=== PATIENT | female | born 1980 | race Caucasian/White ===

== ENCOUNTER 2017-08-10 18:18 | Inpatient (IN) ==
[2017-08-10 19:04] LABS: Bilirubin,Urine Negative (Negative); Blood,Urine Small (Negative); Clarity,Urine Turbid (Clear); Color,Urine Yellow (Yellow); Glucose,Urine (UA) Normal (Normal); Ketones,Urine Negative (Negative); Leukocyte Esterase,Urine Large (Negative); Nitrite,Urine Positive (Negative); Protein,Urine 30 mg/dL (Neg-Trace); Specific Gravity,Urine 1.017 (1.010-1.025); Urobilinogen,Urine Normal (Normal)
[2017-08-10 19:05] LABS: Bacteria,Urine Many per hpf (None-Few); Hyaline Casts,Urine None Seen per lpf (None-Few); Squamous Epithelial Cell,Urine Many per lpf (None-Few); WBC,Urine TNTC per hpf (0-3)
[2017-08-10 19:09] LABS: Amphetamine Screen,Urine Negative ng/mL (Cutoff=1000); Barbiturate Screen,Urine Negative ng/mL (Cutoff=200); Benzodiazepines Screen,Urine Negative ng/mL (Cutoff=200); Cannabinoid Screen,Urine Negative ng/mL (Cutoff = 50); Cocaine Screen,Urine Negative ng/mL (Cutoff= 300); Opiate Screen,Urine Negative ng/mL (Cutoff=300); Phencyclidine Screen,Urine Negative ng/mL (Cutoff=25)
[2017-08-10 19:18] LABS: Basophils # 0.1 K/mcL (0.0-0.2); Basophils % 0.6 %; Eosinophils # 0.3 K/mcL (0.0-0.6); Eosinophils % 3.2 %; Hematocrit 45.9 % (35.3-44.9); Hemoglobin 15.4 g/dL (11.5-15.4); Immature Granulocytes % 0.4 % (0-4); Lymphocytes % 25.8 %; Mean Corpuscular HGB Conc 33.6 g/dL (31.6-35.5); Mean Corpuscular Hemoglobin 31.2 pg (28.0-33.3); Mean Corpuscular Volume 92.9 fL (83.0-100.0); Mean Platelet Volume 9.6 fL (9.4-12.4); Monocytes # 0.7 K/mcL (0.0-1.3); Monocytes % 8.4 %; Neutrophils # 4.8 K/mcL (1.6-8.9); Platelet Count 236 K/mcL (140-400); Red Blood Count 4.94 M/mcL (3.82-4.97); Red Cell Distribution Width 12.5 % (11.5-14.5); Segmented Neutrophils % 61.6 %
[2017-08-10] MEDS ORDERED: levoFLOXacin 750 MG TABLET PO STA (19:36)
--- NOTE | 2017-08-10 19:36 | Emergency Department Note ---
Disposition Clinical Impression: Suicidal ideation UTI (urinary tract infection) Qualifiers: Urinary tract infection type: site unspecified Hematuria presence: without hematuria Qualified Code(s): N39.0 - Urinary tract infection, site not specified Alcohol withdrawal Qualifiers: Complication of substance-induced condition: uncomplicated Qualified Code(s): F10.230 - Alcohol dependence with withdrawal, uncomplicated Disposition: Admitted As Inpatient Condition: Fair Psych HPI - General Chief Complaint: ED Psychiatric Symptoms Stated Complaint: SI,Alcohol Time Seen by Provider: 08/10/17 18:46 Source: patient Mode of arrival: ambulatory Limitations: no limitations Nursing Notes Reviewed: Yes Vital Signs Reviewed: Yes - History of Present Illness HPI Narrative: Patient presents for evaluation of concern for depression and suicidal ideation. Patient states that she has been dealing with this issues for a long time. She feels better when she is on Prozac Prozac was written by a nurse practitioner and she does not always see them. The patient states that she has been on the Prozac last several days without significant change. Patient states that she does have a strong history of chronic alcohol use and has been decreasing. Patient states she is not had anything to drink for the last 3 days. The patient has had burning with urination as well as frequency. She states she has been having fevers and chills with nausea but no vomiting. She states that she believes the fevers chills and nausea related to her detox. Patient will undergo further lab evaluation as well as check urinalysis. - Related Data Home Medications Medication Instructions Recorded Confirmed FLUoxetine HCl [Fluoxetine HCl] 40 mg PO DAILY 08/10/17 08/10/17 hydrOXYzine HCl [Hydroxyzine HCl] 25 mg PO TID 08/10/17 08/10/17 Allergies Allergy/AdvReac Type Severity Reaction Status Date / Time No Known Allergies Allergy Verified 08/10/17 18:23 Review of Systems: CONSTITUTIONAL: Fevers and chills No weight loss, weakness or fatigue. HEENT: Eyes: No visual changes. Ears, Nose, Throat: No hearing loss, difficulty talking or unable to swallow. SKIN: No rash or itching. CARDIOVASCULAR: No chest pain, chest pressure or chest discomfort. No palpitations or edema. RESPIRATORY: No shortness of breath, cough or sputum. GASTROINTESTINAL: Nausea No anorexia, vomiting or diarrhea. No abdominal pain or blood. GENITOURINARY: Burning and frequency with urination NEUROLOGICAL: No headache, dizziness, syncope, paralysis, ataxia, numbness or tingling in the extremities. No change in bowel or bladder control. MUSCULOSKELETAL: No muscle pain, back pain, joint pain or stiffness. Psych: Suicidal ideation, depression Past Medical History - Past Medical History Medical history: Reports: no medical history Psychiatric history: Reports: anxiety, depression, panic disorder, prior suicide attempt, previous psychiatric hospitalization GI ASST history: Reports: bilateral tubal ligation - Social History Smoking Status: Current every day smoker Smokeless Tobacco Status: No Alcohol use: Reports: heavy Drug use: Reports: none Physical Exam General: Well appearing, nontoxic, no acute distress Head: Normocephalic Atraumatic Eyes: PERRL, EOMI ENT: Airway patent, no stridor Neck: supple, no meningismus Chest: Lungs clear to auscultation bilateral Cardiac: Regular rate and rhythm, no murmurs, rubs or gallops Abdomen: soft, nontender, nondistended; no guarding, rebound, or tenderness to percussion; mild right CVA tenderness Musculoskeletal: Calves symmetric, nontender, no palpable cord Skin: No rash, normal skin tone Neuro: Alert and Oriented to person, place, and time; No focal deficit, CN 2-12 symmetric and intact - General Limitations: no limitations General appearance: alert, in no apparent distress Course - Reevaluation(s) Reevaluation #1: She has been found to have significant urinary tract infection. Concern for possible Pyelo bcs she does have some mild CVA tenderness in association with the fever, chills, nausea but these may be related to detox rather than Pyelo. - Consultations Consultation #1: Discussed with 1A. Patient accepted for admission Vital Signs Temperature 97.9 F 08/10/17 18:21 Pulse Rate 82 08/10/17 18:21 Respiratory Rate 16 08/10/17 18:21 Blood Pressure 136/93 08/10/17 18:21 O2 Sat by Pulse Oximetry 98 08/10/17 18:21 Temperature 98.0 F 08/10/17 21:54 Pulse Rate 61 08/10/17 21:54 Respiratory Rate 18 08/10/17 21:54 Blood Pressure 117/77 08/10/17 21:54 O2 Sat by Pulse Oximetry 98 08/10/17 18:21 Oxygen Delivery Oxygen Delivery Room Air Psych - Lab Data Result diagrams: 08/10/17 19:08 08/10/17 19:08 Lab Results 08/10/17 08/10/17 08/10/17 Range/Units 18:52 18:52 19:08 WBC 7.7 (4.3-11.1) K/mcL RBC 4.94 (3.82-4.97) M/mcL Hgb 15.4 (11.5-15.4) g/dL Hct 45.9 H (35.3-44.9) % MCV 92.9 (83.0-100.0) fL MCH 31.2 (28.0-33.3) pg MCHC 33.6 (31.6-35.5) g/dL RDW 12.5 (11.5-14.5) % Plt Count 236 (140-400) K/mcL MPV 9.6 (9.4-12.4) fL Immature Gran % 0.4 (0-4) % Seg Neutrophils % 61.6 % Lymphocytes % 25.8 % Monocytes % 8.4 % Eosinophils % 3.2 % Basophils % 0.6 % Neutrophils # 4.8 (1.6-8.9) K/mcL Lymphocytes # 2.0 (0.6-4.6) K/mcL Monocytes # 0.7 (0.0-1.3) K/mcL Eosinophils # 0.3 (0.0-0.6) K/mcL Basophils # 0.1 (0.0-0.2) K/mcL Sodium (136-145) mEq/L Potassium (3.5-5.1) mEq/L Chloride (98-107) mEq/L Carbon Dioxide (23-29) mEq/L BUN (6-20) mg/dL Creatinine (0.60-1.20) mg/dL Est GFR ( Amer) (> 60) Est GFR (Non-Af Amer) (> 60) BUN/Creatinine Ratio (6-26) Glucose (70-105) mg/dL Calculated Osmolality (280-300) Calcium (8.6-10.3) mg/dL Urine Color Yellow (Yellow) Urine Clarity Turbid A (Clear) Urine pH 6.0 (5.0-8.0) pH Units Ur Specific [place] 1.017 (1.010-1.025) Urine Protein 30 H (Neg-Trace) mg/dL Urine Glucose (UA) Normal (Normal) mg/dL Urine Ketones Negative (Negative) mg/dL Urine Blood Small H (Negative) Urine Nitrite Positive A (Negative) Urine Bilirubin Negative (Negative) Urine Urobilinogen Normal (Normal) mg/dL Ur Leukocyte Esterase Large H (Negative) Urine Microscopic RBC 5-15 H (0-3) per hpf Urine Microscopic WBC TNTC H (0-3) per hpf Ur Squamous Epith Cells Many H (None-Few) per lpf Urine Bacteria Many H (None-Few) per hpf Hyaline Casts None Seen (None-Few) per lpf Ur Culture Indicated? NO. (NO) Salicylates (15.0-30.0) mg/dL Urine Opiates Screen Negative (Riodjg=234) ng/mL Acetaminophen (10-30) mcg/mL Ur Barbiturates Screen Negative (Cfpiga=874) ng/mL Ur Phencyclidine Scrn Negative (Cutoff=25) ng/mL Ur Amphetamines Screen Negative (Hvojte=9029) ng/mL U Benzodiazepines Scrn Negative (Vggkei=745) ng/mL Urine Cocaine Screen Negative (Cutoff= 300) ng/mL U Marijuana (THC) Screen Negative (Cutoff = 50) ng/mL Ethyl Alcohol (0-10) mg/dL 08/10/17 Range/Units 19:08 WBC (4.3-11.1) K/mcL RBC (3.82-4.97) M/mcL Hgb (11.5-15.4) g/dL Hct (35.3-44.9) % MCV (83.0-100.0) fL MCH (28.0-33.3) pg MCHC (31.6-35.5) g/dL RDW (11.5-14.5) % Plt Count (140-400) K/mcL MPV (9.4-12.4) fL Immature Gran % (0-4) % Seg Neutrophils % % Lymphocytes % % Monocytes % % Eosinophils % % Basophils % % Neutrophils # (1.6-8.9) K/mcL Lymphocytes # (0.6-4.6) K/mcL Monocytes # (0.0-1.3) K/mcL Eosinophils # (0.0-0.6) K/mcL Basophils # (0.0-0.2) K/mcL Sodium 137 (136-145) mEq/L Potassium 3.6 (3.5-5.1) mEq/L Chloride 110 H (98-107) mEq/L Carbon Dioxide 24 (23-29) mEq/L BUN 7 (6-20) mg/dL Creatinine 0.73 (0.60-1.20) mg/dL Est GFR ( Amer) > 60 (> 60) Est GFR (Non-Af Amer) > 60 (> 60) BUN/Creatinine Ratio 10 (6-26) Glucose 96 (70-105) mg/dL Calculated Osmolality 282 (280-300) Calcium 9.2 (8.6-10.3) mg/dL Urine Color (Yellow) Urine Clarity (Clear) Urine pH (5.0-8.0) pH Units Ur Specific [place] (1.010-1.025) Urine Protein (Neg-Trace) mg/dL Urine Glucose (UA) (Normal) mg/dL Urine Ketones (Negative) mg/dL Urine Blood (Negative) Urine Nitrite (Negative) Urine Bilirubin (Negative) Urine Urobilinogen (Normal) mg/dL Ur Leukocyte Esterase (Negative) Urine Microscopic RBC (0-3) per hpf Urine Microscopic WBC (0-3) per hpf Ur Squamous Epith Cells (None-Few) per lpf Urine Bacteria (None-Few) per hpf Hyaline Casts (None-Few) per lpf Ur Culture Indicated? (NO) Salicylates < 5.0 L (15.0-30.0) mg/dL Urine Opiates Screen (Povvaz=174) ng/mL Acetaminophen < 1.0 L (10-30) mcg/mL Ur Barbiturates Screen (Zmmpro=524) ng/mL Ur Phencyclidine Scrn (Cutoff=25) ng/mL Ur Amphetamines Screen (Msrslk=1479) ng/mL U Benzodiazepines Scrn (Utagnm=119) ng/mL Urine Cocaine Screen (Cutoff= 300) ng/mL U Marijuana (THC) Screen (Cutoff = 50) ng/mL Ethyl Alcohol < 10 (0-10) mg/dL Psychiatric Medical Clearance - Medical Clearance Checklist Medical History: No Social History Section defined Current Vitals: Last Vital Signs Temp 98.0 F 08/10/17 21:54 Pulse 61 08/10/17 21:54 Resp 18 08/10/17 21:54 BP 117/77 08/10/17 21:54 Pulse Ox 98 08/10/17 18:21 Psychiatric Lab Panel: Drug Levels and Toxicity 08/10/17 08/10/17 18:52 19:08 Urine Opiates Screen Negative Acetaminophen < 1.0 L Ur Barbiturates Screen Negative Ur Phencyclidine Scrn Negative Ur Amphetamines Screen Negative U Benzodiazepines Scrn Negative Urine Cocaine Screen Negative U Marijuana (THC) Screen Negative Ethyl Alcohol < 10 Abnormal Labs: Abnormal lab results Hct 45.9 % (35.3-44.9) H 08/10/17 19:08 Chloride 110 mEq/L (98-107) H 08/10/17 19:08 Urine Clarity Turbid (Clear) A 08/10/17 18:52 Urine Protein 30 mg/dL (Neg-Trace) H 08/10/17 18:52 Urine Blood Small (Negative) H 08/10/17 18:52 Urine Nitrite Positive (Negative) A 08/10/17 18:52 Ur Leukocyte Esterase Large (Negative) H 08/10/17 18:52 Urine Microscopic RBC 5-15 per hpf (0-3) H 08/10/17 18:52 Urine Microscopic WBC TNTC per hpf (0-3) H 08/10/17 18:52 Ur Squamous Epith Cells Many per lpf (None-Few) H 08/10/17 18:52 Urine Bacteria Many per hpf (None-Few) H 08/10/17 18:52 Salicylates < 5.0 mg/dL (15.0-30.0) L 08/10/17 19:08 Acetaminophen < 1.0 mcg/mL (10-30) L 08/10/17 19:08 Statement of Medical Clearance: I have evaluated the patient, reviewed diagnostic information, and certify that the patient's medical condition is sufficiently stable that transfer to the psychiatric unit does not pose a significant risk of deterioration.
[2017-08-10 19:46] LABS: Acetaminophen < 1.0 mcg/mL (10-30); Ethanol < 10 mg/dL (0-10); Salicylate < 5.0 mg/dL (15.0-30.0)
[2017-08-10 19:47] LABS: BUN/Creatinine Ratio 10 (6-26); Blood Urea Nitrogen 7 mg/dL (6-20); Calcium 9.2 mg/dL (8.6-10.3); Carbon Dioxide 24 mEq/L (23-29); Chloride 110 mEq/L (98-107); Glucose 96 mg/dL (70-105); Osmolality,Calculated 282 (280-300); Potassium 3.6 mEq/L (3.5-5.1); Sodium 137 mEq/L (136-145); eGFR For African Americans > 60 (> 60); eGFR For Non-African Americans > 60 (> 60)
--- NOTE | 2017-08-10 20:14 | Emergency Department Note ---
START Narrative - START START: I examined this patient and my medical decision-making was reviewed with the Resident Physician. I agree with the documented findings, disposition and treatment plan as described except to the extent set forth below. 37 -year-old female here for suicidal ideation and depression. Patient was found to have a urinary tract infection. We will give some IV antibiotics for this. Remaining lab work is okay. Patient also has problems with alcohol. Her last drink was 3 days ago. She does feels slightly jittery. No homicidal thoughts. Awaiting psychiatric evaluation for possible placement. We will treat her urinary tract infection with Levaquin.
[2017-08-10] MEDS ORDERED: *HR* LORazepam 2 MG/ML VIAL IM PRN (21:54)
[2017-08-10] MEDS ORDERED: Haloperidol Lactate 5 MG/ML VIAL IM PRN (21:54)
[2017-08-10] MEDS ORDERED: Ibuprofen 400 MG TABLET PO PRN (21:54)
[2017-08-10] MEDS ORDERED: hydrOXYzine pamoate 25 MG CAPSULE PO PRN (21:54)
[2017-08-10] MEDS ORDERED: MOM Conc 10 ML UD.LIQ PO PRN (21:54)
[2017-08-10] MEDS ORDERED: Mag Hydrox/Al Hydrox/Simeth 30 ML UDC PO PRN (21:54)
[2017-08-10] MEDS ORDERED: *HR* LORazepam 1 MG TABLET PO PRN (21:54)
[2017-08-10] MEDS ORDERED: levoFLOXacin 500 MG TABLET PO ONE (22:00)
[2017-08-10] MEDS: diazePAM 5 MG TABLET PO SCH (22:47)
[2017-08-10] MEDS ORDERED: Ondansetron ODT 4 MG TAB.RAPDIS SL PRN (22:55)
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
[2017-08-11] MEDS: FLUoxetine 20 MG CAPSULE PO SCH (09:38)
[2017-08-11] MEDS: diazePAM 5 MG TABLET PO SCH ×2 (09:39→20:08)
[2017-08-11] MEDS: Nicotine 21 MG PATCH.TD24 TD SCH (09:39)
[2017-08-11] MEDS: levoFLOXacin 500 MG TABLET PO SCH (09:39)
[2017-08-12] MEDS: diazePAM 5 MG TABLET PO SCH ×2 (08:57→21:43)
[2017-08-12] MEDS: levoFLOXacin 500 MG TABLET PO SCH (08:57)
[2017-08-12] MEDS: FLUoxetine 20 MG CAPSULE PO SCH (08:57)
[2017-08-12] MEDS: Nicotine 21 MG PATCH.TD24 TD SCH (08:59)
--- NOTE | 2017-08-13 00:14 | Psychiatry Progress Note ---
Date of Encounter: 08/13/17 Time of Encounter: 10:00 Subjective Interval history: The patient was seen and reviewed some history. Patient reports that she has had panic attacks and that the Valium 5 mg twice a day as most helpful for this. She has been on Prozac 40 mg feels this is helpful for mood. The patient notes that she has not been on anything else for panic attacks. She indicates that she lives with her fiance and her [id number] son. She has several other children. Her plan is to go back to [facility]. She plans to attend she plans to remain on her antidepressant she plans to go on meeting in [place]. The patient reports no current suicidal or homicidal ideation. She is not craving the diazepam. Vitals signs up and checked every 4 hours while awake. Review of Systems Constitutional: Reports: night sweats. Denies: fever, chills, weakness, weight change Cardiovascular: Denies: chest pain, palpitations, dyspnea on exertion Psychiatric: Reports: depression, anxiety, abnormal sleep pattern, suicidal ideation, anhedonia, difficulty concentrating, hopelessness, irritability, mood swings, panic attacks. Denies: auditory hallucinations, visual hallucinations Objective: Exam Patient orientation: Yes Person, Yes Time, Yes Place, Yes Circumstance Level of alertness: Alert Patient appearance: Appropriate Behavior: calm, cooperative Psychomotor activity: Normal Eye contact: Maintains Eye Contact Mood description: Euthymic/stable Affect description: congruent with mood, anxious Speech pattern: Normal rate Speech volume: Normal Thought process: Intact Thought content: Yes Intact Perceptual disturbances: Yes Reacting to internal stimuli Judgment: Limited Insight: Minimal Results - Vital Signs Vital Signs: Temp Pulse Resp BP Pulse Ox 98.4 F 79 16 116/79 96 08/12/17 20:56 08/12/17 20:56 08/12/17 20:56 08/12/17 20:56 08/11/17 05:00 - Drug Levels and Toxicology Drug Levels and Toxicology: The toxicology was negative for drugs of abuse Assessment and Plan (1) Alcohol withdrawal Current visit: Yes Status: Acute Plan: Encourage participation in unit milieu Risks, benefits, side effects, alternatives discussed w/pt: Yes Patient agreeable to treatment: Yes Qualifiers: Complication of substance-induced condition: with unspecified complication Qualified Code(s): F10.239 - Alcohol dependence with withdrawal, unspecified (2) Major depressive disorder Current visit: Yes Status: Acute Additional Plan: The patient will remain on Prozac 40 mg per day Risks, benefits, side effects, alternatives discussed w/pt: Yes Patient agreeable to treatment: Yes Qualifiers: Major depression recurrence: recurrent Active/Remission status: currently active Major depression episode severity: severe Psychotic features: without psychotic features Qualified Code(s): F33.2 - Major depressive disorder, recurrent severe without psychotic features (3) Anxiety Current visit: Yes Status: Acute Plan: Continue hospitalization, Family/Supportive other meeting Additional Plan: This patient is doing well on diazepam. However it has a risk of addiction. This was discussed. Our other options including adding BuSpar baclofen or topiramate. Vistaril was not helpful Risks, benefits, side effects, alternatives discussed w/pt: Yes Patient agreeable to treatment: Yes (4) Suicidal ideation Current visit: Yes Status: Acute Plan: Continue hospitalization, Suicide Precautions per unit protocol Risks, benefits, side effects, alternatives discussed w/pt: Yes Patient agreeable to treatment: Yes Consult Discharge Plan - Plan Referrals: [facility] [Outside] - 08/23/17 11:00 am (Above appointment is with Manpreet Martinez You will also see Skyla Branch NP on 09/15/17 at 9:30am)
[2017-08-13] MEDS: levoFLOXacin 500 MG TABLET PO SCH (08:49)
[2017-08-13] MEDS: FLUoxetine 20 MG CAPSULE PO SCH (08:50)
[2017-08-13] MEDS: Nicotine 21 MG PATCH.TD24 TD SCH (08:50)
[2017-08-13] MEDS: diazePAM 5 MG TABLET PO SCH ×2 (08:51→21:09)
--- NOTE | 2017-08-13 15:14 | Psychiatry Progress Note ---
Date of Encounter: 08/13/17 Time of Encounter: 13:45 Subjective Interval history: The patient was seen visiting with family members. She has been doing well with diazepam 5 mg twice a day. She recognizes that this potentially addictive medicine but this is helped her panic attacks and in fact she is anxious about possibly going off nonetheless she was able to discuss an alternative baclofen and another alternative topiramate in an effort to control anxiety without being on diazepam or the patient wishes to make maintain on Prozac 40 mg per day she is able to read books on recovery and recites for [employer] se[employer] prayer. She is working on a follow-up appointment [facility] but would like to get back to her family. The patient has had tubal ligation so that contraception is not major concern. Review of Systems Constitutional: Denies: fever, chills, weakness, weight change Eyes: Denies: eye pain, vision change Ears, Nose, Throat: Denies: ear pain, throat pain, dental pain, hearing loss, congestion Cardiovascular: Denies: chest pain, palpitations, dyspnea on exertion Respiratory: Denies: cough, dyspnea, wheezes Gastrointestinal: Denies: abdominal pain, nausea, vomiting, diarrhea, constipation Musculoskeletal: Denies: joint swelling, joint pain Neurological: Denies: headache, weakness, numbness, memory loss Psychiatric: Reports: anxiety. Denies: auditory hallucinations, visual hallucinations Objective: Exam Patient orientation: Yes Person, Yes Time, Yes Place Level of alertness: Alert Patient appearance: Appropriate, Well Groomed Behavior: calm, cooperative, anxious Psychomotor activity: Normal Eye contact: Maintains Eye Contact Mood description: Euthymic/stable Affect description: congruent with mood, full range Speech pattern: Normal rate, Normal rhythm, Normal tone Speech volume: Normal Thought process: Linear, Goal Oriented Thought content: No Suicidal ideation, No Homicidal ideation, No Overt delusions Perceptual disturbances: No Auditory hallucinations, No Visual hallucinations Judgment: Fair Insight: Partial Results - Vital Signs Vital Signs: Temp Pulse Resp BP Pulse Ox 98.2 F 90 16 117/76 96 08/13/17 09:19 08/13/17 09:19 08/13/17 09:19 08/13/17 09:19 08/11/17 05:00 - Impressions The patient has been free of 4 withdrawal symptoms does not evidence significant elevations in vital signs therefore there will be moved to a routine. Assessment and Plan (1) Alcohol withdrawal Current visit: Yes Status: Resolved Plan: Close observation Risks, benefits, side effects, alternatives discussed w/pt: Yes Patient agreeable to treatment: Yes Qualifiers: Complication of substance-induced condition: with unspecified complication Qualified Code(s): F10.239 - Alcohol dependence with withdrawal, unspecified (2) Major depressive disorder Current visit: Yes Status: Acute Plan: Continue hospitalization, Close observation, Family/Supportive other meeting Risks, benefits, side effects, alternatives discussed w/pt: Yes Patient agreeable to treatment: Yes Qualifiers: Major depression recurrence: recurrent Active/Remission status: currently active Major depression episode severity: severe Psychotic features: without psychotic features Qualified Code(s): F33.2 - Major depressive disorder, recurrent severe without psychotic features (3) Anxiety Current visit: Yes Status: Acute Plan: Continue hospitalization Additional Plan: Trial of baclofen 10 mg every afternoon Risks, benefits, side effects, alternatives discussed w/pt: Yes Patient agreeable to treatment: Yes (4) Suicidal ideation Current visit: Yes Status: Acute Plan: Continue hospitalization, Close observation Risks, benefits, side effects, alternatives discussed w/pt: Yes Patient agreeable to treatment: Yes Consult Discharge Plan - Plan Referrals: [facility] [Outside] - 08/23/17 11:00 am (Above appointment is with Manpreet Martinez You will also see Skyla Branch NP on 09/15/17 at 9:30am)
[2017-08-13] MEDS ORDERED: Baclofen 10 MG TABLET PO SCH (18:00)
[2017-08-13] MEDS: traZODone 50 MG TABLET PO PRN (21:15)
[2017-08-14] MEDS: Nicotine 21 MG PATCH.TD24 TD SCH (08:41)
[2017-08-14] MEDS: diazePAM 5 MG TABLET PO SCH ×2 (08:42→20:55)
[2017-08-14] MEDS: FLUoxetine 20 MG CAPSULE PO SCH (08:42)
[2017-08-14] MEDS: levoFLOXacin 500 MG TABLET PO SCH (08:42)
--- NOTE | 2017-08-14 15:36 | Psychiatry Progress Note ---
Date of Encounter: 08/14/17 Time of Encounter: 15:30 Subjective Interval history: Patient was sedated on Baclofen. She did not toelrate it. She is willing to try Topimate. She failed Vistaril, has not had Buspar. She would like to go home soon, so will try Toprimate for anxiety. Review of Systems Psychiatric: Reports: anxiety, panic attacks. Denies: auditory hallucinations, visual hallucinations Objective: Exam Patient orientation: Yes Person, Yes Time, Yes Place Level of alertness: Alert Patient appearance: Appropriate, Well Groomed Behavior: calm, cooperative Psychomotor activity: Normal Eye contact: Maintains Eye Contact Mood description: Euthymic/stable Affect description: congruent with mood, full range Speech pattern: Normal rate, Normal rhythm, Normal tone Speech volume: Normal Thought process: Linear, Goal Oriented Thought content: No Suicidal ideation, No Homicidal ideation, No Overt delusions Perceptual disturbances: No Auditory hallucinations, No Visual hallucinations Judgment: Fair Insight: Partial Results - Vital Signs Vital Signs: Temp Pulse Resp BP Pulse Ox 97.7 F 93 16 111/58 96 08/14/17 08:43 08/14/17 08:43 08/14/17 08:43 08/14/17 08:43 08/11/17 05:00 Assessment and Plan (1) Alcohol withdrawal Current visit: Yes Status: Resolved Plan: Close observation Risks, benefits, side effects, alternatives discussed w/pt: Yes Patient agreeable to treatment: Yes Qualifiers: Complication of substance-induced condition: with unspecified complication Qualified Code(s): F10.239 - Alcohol dependence with withdrawal, unspecified (2) Major depressive disorder Current visit: Yes Status: Acute Plan: Continue hospitalization, Group Therapy, Secure weapons Risks, benefits , side effects, alternatives discussed w/pt: Yes Patient agreeable to treatment: Yes Qualifiers: Major depression recurrence: recurrent Active/Remission status: currently active Major depression episode severity: severe Psychotic features: without psychotic features Qualified Code(s): F33.2 - Major depressive disorder, recurrent severe without psychotic features (3) Anxiety Current visit: Yes Status: Acute Additional Plan: d/c baclofen trial of topirmate, side effects Risks, benefits, side effects, alternatives discussed w/pt: Yes Patient agreeable to treatment: Yes (4) Suicidal ideation Current visit: Yes Status: Acute Risks, benefits, side effects, alternatives discussed w/pt: Yes Patient agreeable to treatment: Yes Consult Discharge Plan - Plan Referrals: [facility] [Outside] - 08/23/17 11:00 am (Above appointment is with Manpreet Martinez You will also see Skyla Branch NP on 09/15/17 at 9:30am)
[2017-08-14] MEDS ORDERED: Topiramate 25 MG TABLET PO SCH (18:00)
[2017-08-14] MEDS: traZODone 50 MG TABLET PO PRN (20:55)
[2017-08-15 08:51] VITALS: BP 94/67
[2017-08-15] MEDS: levoFLOXacin 500 MG TABLET PO SCH (09:02)
[2017-08-15] MEDS: Nicotine 21 MG PATCH.TD24 TD SCH (09:03)
[2017-08-15] MEDS: FLUoxetine 20 MG CAPSULE PO SCH (09:03)
[2017-08-15] MEDS: diazePAM 5 MG TABLET PO SCH (09:06)
--- NOTE | 2017-08-15 11:05 | Discharge Summary ---
Date of Encounter: 08/15/17 Time of Encounter: 10:35 Diagnosis - Discharge Diagnosis (1) Major depressive disorder Status: Acute Qualifiers: Major depression recurrence: recurrent Active/Remission status: currently active Major depression episode severity: severe Psychotic features: without psychotic features Qualified Code(s): F33.2 - Major depressive disorder, recurrent severe without psychotic features (2) Alcohol withdrawal Status: Resolved Qualifiers: Complication of substance-induced condition: with unspecified complication Qualified Code(s): F10.239 - Alcohol dependence with withdrawal, unspecified (3) Anxiety Status: Acute Medications - Discharge Medications Prescriptions: FLUoxetine HCl [Prozac] 40 mg PO DAILY 30 Days #60 capsule Topiramate [Topamax] 25 mg PO QPM 30 Days #30 tablet traZODone [TraZODone] 50 mg PO HS PRN 30 Days #30 tablet PRN Reason: Insomnia FLUoxetine HCl [Fluoxetine HCl] 40 mg PO DAILY 08/10/17 [History] hydrOXYzine HCl [Hydroxyzine HCl] 25 mg PO TID 08/10/17 [History] FLUoxetine HCl [Prozac] 40 mg PO DAILY 30 Days #60 capsule 08/15/17 [Rx] Topiramate [Topamax] 25 mg PO QPM 30 Days #30 tablet 08/15/17 [Rx] levoFLOXacin [Levaquin] 500 mg PO DAILY 7 Days #7 tablet 08/15/17 [Rx] traZODone [TraZODone] 50 mg PO HS PRN 30 Days #30 tablet 08/15/17 [Rx] 3 Allergy/AdvReac Type Severity Reaction Status Date / Time No Known Allergies Allergy Verified 08/10/17 18:23 Provider Date of admission: 08/10/17 21:46 Primary care physician: PCP NONE Assessment and Plan - Patient/Caregiver Discharge Instructions Activity: resume usual activities as tolerated Diet: regular diet - Follow up Plan Follow up with: [facility] [Outside] - 08/23/17 11:00 am (Above appointment is with Manpreet Martinez You will also see Skyla Branch NP on 09/15/17 at 9:30am) Functional capacity at discharge: independent ambulation Overall status at discharge: Stable Disposition: Home, Self-Care Hospital Course Hospital course: Ms. Gordillo is a 37 year old female who was admitted after having suicidal thoughts and feeling depressed going through alcohol withdrawal. Patient was monitored on the unit for alcohol withdrawal was encouraged to go to groups and attend therapy. She was instructed to verbalize any physical findings she had going through withdrawal. Patient was placed on low milligrams strength of Valium 5 mg PO BID to help with generalized anxiety/panic and with the alcohol withdrawal. She is also restarted on her Prozac 40 mg PO Q day. When I asked her how she was doing today, she told me, "good". Patient talked about feeling previously feeling anxious and being depressed. She knows she has an issue with addiction. It was discussed with her at the Valium had very strong addictive properties that should be tapered off of it, and there was a need to attempt to find another medication to help her with anxiety. She is given a trial of baclofen times 1. Patient states that she slept the whole day having taken it and did not want to take that again that it was not going to allow her to function. The attending psychiatrist at the time talk to her about Topamax. She is agreeable to trying Topamax to see if that helped. She took a 25 mg dose last evening. She noted today that she was not feeling is tired and that she thought that would help. She did not feel anxious but it had Valium 5 mg earlier this morning. She understands that she will not be discharged home on the Valium. She states that she thinks she is done with all the withdrawal. She denies any suicidal/homicidal ideation. She is feeling mildly anxious but not feeling depressed and is hopeful about our future. She has outpatient follow-up scheduled where she can get counseling and she already has a list of AA meetings in her local area that she can go to to get support. She states that she is sleeping much better and eating fine. Her mood is stable. She has questions about her follow-up appointments which were answered. She is at the end of her 72 hour hold. She does not want to sign in voluntarily and wishes to go home. Patient be discharged, she does not meet criteria for imminent risk to herself or anybody else for involuntary admission. Time spent discussing smoking cessation with patient: 3 to 10 minutes Does patient wish to continue nicotine replacement upon disc: No - Time Spent with Patient Total time spent providing and/or coordinating discharge services: 25 min Less than 30 minutes Quality - Multiple Antipsychotics Patient discharged on 2 or more antipsychotic medications: No Procedures - Procedures Procedures: Medication Management, Crisis Stabilization, Supportive Therapy, Psychoeducational Therapy Mental Status Exam - Mental Status Exam Patient orientation: Yes Person, Yes Time, Yes Place, Yes Circumstance Level of alertness: Alert Patient appearance: Appropriate, Well Groomed, Well-nourished Behavior: calm Psychomotor activity: Normal Eye contact: Maintains Eye Contact Mood description: Anxious (mild) Affect description: congruent with mood Speech pattern: Normal rate, Normal rhythm, Normal tone Speech Volume: Normal Thought process: Intact, Logical, Linear, Goal Oriented Thought Content: Yes Intact Judgment: Fair Insight: Partial
[2017-08-15] MEDS ORDERED: FLUARIX QUAD 2017-18 36MOS UP/PF 0.5 ML SYRINGE IM ONE (11:46)
== END 2017-08-15 12:58 | disposition home or self-care (01) | DRG 885 ==
LOC: EMEROO 18:18 → 1ANU 21:40 → SUATTDRO 21:46
PROVIDERS: ADMIT Student in an Organized Health Care Education/Training Program; ATTEND Psychiatry & Neurology Psychiatry